=== PATIENT | male | born 1990 | race Caucasian/White ===

== ENCOUNTER 2020-06-12 16:12 | Emergency (ER) | payer BC, OTHER ==
[2020-06-12 16:24] VITALS: RESP 18; TEMP 98
--- NOTE | 2020-06-12 16:28 | ED ---
General Adult HPI - General Source: patient Mode of arrival: ambulatory Limitations: no limitations <Chet Torres - Last Filed: 06/12/20 18:03> <Asher Louie - Last Filed: 06/12/20 21:58> - General Chief complaint: Recheck/Abnormal Lab/Rx Stated complaint: Rib Pain Time Seen by Provider: 06/12/20 16:25 - History of Present Illness Initial comments: 29-year-old male presenting to the emergency department with multiple chief complaints. Patient reports 3 days ago he was wrestling with one of his friends and injured his left lateral ribs. Patient reports no the pain is exacerbated with any left and right rotation and occasional bending. Does not report any pain with deep breaths. States he did have broken ribs previously on the left side and is concerned that he might have "rebroke". Patient is also complaining of possible seizure-like activities as benign over the past several months. Patient reports he had a witnessed seizure-like activity with shaking and apparent postictal activity where the patient was disoriented for approximately half hour. Patient reports he has been diagnosed with fibromyalgia as well by an unknown physician several years ago. He does not have a primary care physician. Denies chest pain shortness of breath headaches blurry vision. No history of epilepsy. (Chet Torres) - Related Data Home Medications Medication Instructions Recorded Confirmed No Known Home Medications 06/12/20 06/12/20 Allergies Allergy/AdvReac Type Severity Reaction Status Date / Time No Known Allergies Allergy Verified 06/12/20 17:02 Review of Systems ROS Other: All systems not noted in ROS Statement are negative. <Chet Torres - Last Filed: 06/12/20 18:03> ROS Other: All systems not noted in ROS Statement are negative. <Asher Louie - Last Filed: 06/12/20 21:58> ROS Statement: Those systems with pertinent positive or pertinent negative responses have been documented in the HPI. Past Medical History Past Medical History: No Reported History History of Any Multi-Drug Resistant Organisms: None Reported Past Surgical History: No Surgical Hx Reported Past Psychological History: No Psychological Hx Reported Past Alcohol Use History: None Reported Past Drug Use History: None Reported <Chet Torres - Last Filed: 06/12/20 18:03> General Exam Limitations: no limitations General appearance: alert, in no apparent distress Head exam: Present: atraumatic, normocephalic, normal inspection Eye exam: Present: normal appearance, PERRL, EOMI Pupils: Present: normal accommodation ENT exam: Present: normal exam, normal oropharynx, mucous membranes moist, TM's normal bilaterally, normal external ear exam Neck exam: Present: normal inspection, full ROM. Absent: tenderness Respiratory exam: Present: normal lung sounds bilaterally. Absent: respiratory distress, wheezes, rales, rhonchi, stridor GI/Abdominal exam: Present: soft, tenderness (Mild tenderness on the left chest wall. No region of ecchymosis.). Absent: distended Extremities exam: Present: normal inspection, full ROM, normal capillary refill. Absent: tenderness, pedal edema, joint swelling Back exam: Present: normal inspection, full ROM. Absent: tenderness, CVA tenderness (R), CVA tenderness (L) Neurological exam: Present: alert, oriented X3 Psychiatric exam: Present: normal affect, normal mood Skin exam: Present: warm, dry, intact, normal color <Chet Torres - Last Filed: 06/12/20 18:03> Course Vital Signs 06/12/20 06/12/20 16:21 18:05 Temperature 98.0 F Pulse Rate 94 70 Respiratory 18 18 Rate Blood Pressure 163/86 129/80 O2 Sat by Pulse 100 100 Oximetry Medical Decision Making - Lab Data Result diagrams: 06/12/20 16:58 06/12/20 16:58 <Chet Torres - Last Filed: 06/12/20 18:03> - Lab Data Result diagrams: 06/12/20 16:58 06/12/20 16:58 <Asher Louie - Last Filed: 06/12/20 21:58> - Medical Decision Making 29-year-old male presenting to the emergency department with multiple chief complaints. On physical examination does have mild left-sided, localized chest wall tenderness. The rest of physical exam is unremarkable. X-ray of the ribs and chest is unremarkable. EKG showed a right bundle branch block. CBC CMP, magnesium and phosphorus within normal limits. Patient supposedly had a new onset seizure over the last several months and has not been evaluated. Patient was given contact information regarding local primary care physicians. I highly recommended to the patient that he should obtain a primary care physician. Return parameters were thoroughly discussed the patient's abstaining agreeable. Case discussed with physician. (Chet Torres) - Lab Data Lab Results 06/12/20 06/12/20 06/12/20 Range/Units 16:58 16:58 16:58 WBC 5.5 (3.8-10.6) k/uL RBC 4.86 (4.30-5.90) m/uL Hgb 15.1 (13.0-17.5) gm/dL Hct 45.2 (39.0-53.0) % MCV 93.0 (80.0-100.0) fL MCH 31.1 (25.0-35.0) pg MCHC 33.4 (31.0-37.0) g/dL RDW 13.0 (11.5-15.5) % Plt Count 235 (150-450) k/uL MPV 7.1 Neutrophils % 59 % Lymphocytes % 30 % Monocytes % 5 % Eosinophils % 3 % Basophils % 1 % Neutrophils # 3.2 (1.3-7.7) k/uL Lymphocytes # 1.7 (1.0-4.8) k/uL Monocytes # 0.3 (0-1.0) k/uL Eosinophils # 0.2 (0-0.7) k/uL Basophils # 0.1 (0-0.2) k/uL Sodium 141 (137-145) mmol/L Potassium 4.1 (3.5-5.1) mmol/L Chloride 102 (98-107) mmol/L Carbon Dioxide 33 H (22-30) mmol/L Anion Gap 6 mmol/L BUN 11 (9-20) mg/dL Creatinine 0.63 L (0.66-1.25) mg/dL Est GFR (CKD-EPI)AfAm >90 (>60 ml/min/1.73 sqM) Est GFR (CKD-EPI)NonAf >90 (>60 ml/min/1.73 sqM) Glucose 103 H (74-99) mg/dL Calcium 9.5 (8.4-10.2) mg/dL Phosphorus 3.9 (2.5-4.5) mg/dL Magnesium 1.9 (1.6-2.3) mg/dL Total Bilirubin 0.5 (0.2-1.3) mg/dL AST 25 (17-59) U/L ALT 28 (4-49) U/L Alkaline Phosphatase 72 (38-126) U/L Total Protein 7.9 (6.3-8.2) g/dL Albumin 4.6 (3.5-5.0) g/dL - EKG Data EKG Comments: Sinus rhythm with a right bundle branch block. Ventricular rate 82, CO 140, QRS 156, QTC 457. (Chet Torres) Disposition Is patient prescribed a controlled substance at d/c from ED?: No Time of Disposition: 17:57 <Chet Torres - Last Filed: 06/12/20 18:03> <Asher Louie - Last Filed: 06/12/20 21:58> Clinical Impression: Rib pain on left side, New onset seizure Disposition: HOME SELF-CARE Condition: Stable Instructions (If sedation given, give patient instructions): Rib Contusion (ED) Additional Instructions: Alternate between Tylenol and Motrin for pain control. Obtain a primary care physician. Return to emergency department if symptoms worsen. Referrals: None,Stated [Primary Care Provider] - 1-2 days Lb Alaniz MD [REFERRING] - 1-2 days Xochilt Villar MD [STAFF PHYSICIAN] - 1-2 days Uriel Paul DO [Doctor of Osteopathic Medicine] - 1-2 days
--- NOTE | 2020-06-12 17:06 | XR ---
EXAMINATION TYPE: PA chest and left rib series DATE OF EXAM: 06/12/2020 TECHNIQUE: 5 views Comparison: 06/24/2014 Clinical History: 29-year-old male with pain after fall injury Findings: The cardiomediastinal silhouette, aorta, and pulmonary vasculature are within normal limits. Lungs and pleural spaces are clear. No displaced left rib fracture. Impression: No acute cardiopulmonary process. No displaced left rib fracture.
[2020-06-12 17:15] LABS: Basophils # (A) 0.1 k/uL (0-0.2); Basophils % (A) 1 %; Eosinophils # (A) 0.2 k/uL (0-0.7); Eosinophils % (A) 3 %; HCT 45.2 % (39.0-53.0); HGB 15.1 gm/dL (13.0-17.5); Lymphocytes # (A) 1.7 k/uL (1.0-4.8); Lymphocytes % (A) 30 %; MCH 31.1 pg (25.0-35.0); MCHC 33.4 g/dL (31.0-37.0); Mean Platelet Volume 7.1; Monocytes # (A) 0.3 k/uL (0-1.0); Monocytes % (A) 5 %; Neutrophils # (A) 3.2 k/uL (1.3-7.7); Neutrophils % (A) 59 %; Platelet Count 235 k/uL (150-450); RBC 4.86 m/uL (4.30-5.90); WBC 5.5 k/uL (3.8-10.6)
[2020-06-12 17:24] LABS: ALT 28 U/L (4-49); AST 25 U/L (17-59); African American GFR (CKD) >90 (>60 ml/min/1.73 sqM); Albumin 4.6 g/dL (3.5-5.0); Alkaline Phosphatase 72 U/L (38-126); Anion Gap 6 mmol/L; Blood Urea Nitrogen 11 mg/dL (9-20); Calcium 9.5 mg/dL (8.4-10.2); Carbon Dioxide 33 mmol/L (22-30); Chloride 102 mmol/L (98-107); Glucose 103 mg/dL (74-99); Magnesium 1.9 mg/dL (1.6-2.3); Non-African American GFR(CKD) >90 (>60 ml/min/1.73 sqM); Phosphorus 3.9 mg/dL (2.5-4.5); Potassium 4.1 mmol/L (3.5-5.1); Sodium 141 mmol/L (137-145); Total Bilirubin 0.5 mg/dL (0.2-1.3); Total Protein 7.9 g/dL (6.3-8.2)
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
[2020-06-12 18:09] VITALS: BP 129/80; PULSE 70
== END 2020-06-12 18:04 | disposition home or self-care (01) ==
LOC: EC 16:12
DX: S29.9XXA Unspecified injury of thorax, initial encounter (principal); R56.9 Unspecified convulsions; I45.10 Unspecified right bundle-branch block; X58.XXXA Exposure to other specified factors, initial encounter; Y93.72 Activity, wrestling
CPT/HCPCS: 36415; 70450; 72125; 80053; 83735; 84100; 85025; 93005; 99284

== ENCOUNTER 2022-10-15 12:54 | Emergency (ER) | payer OTHER ==
[2022-10-15 13:02] VITALS: RESP 16; TEMP 97.9
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
--- NOTE | 2022-10-15 14:01 | XR ---
EXAMINATION TYPE: XR ankle complete LT DATE OF EXAM: 10/15/2022 COMPARISON: None HISTORY: Pain TECHNIQUE: 3 view left ankle FINDINGS: No acute fractures are evident. Old fracture of the distal tibia appears to be present. Ank le mortise is intact. Soft tissues are normal. Follow up exams can be performed 710 days from acute trauma for continued pain. IMPRESSION: 1. No acute osseous abnormality left ankle
[2022-10-15 14:28] VITALS: BP 131/76; PULSE 94
== END 2022-10-15 14:31 | disposition home or self-care (01) ==
LOC: EC 12:54
DX: S93.402A Sprain of unspecified ligament of left ankle, initial encounter (principal); F17.290 Nicotine dependence, other tobacco product, uncomplicated; X58.XXXA Exposure to other specified factors, initial encounter
CPT/HCPCS: 99283

== ENCOUNTER 2023-11-09 14:07 | Emergency (ER) | payer BC, OTHER ==
[2023-11-09 14:12] VITALS: TEMP 98
--- NOTE | 2023-11-09 14:33 | ED ---
General Adult HPI - General Chief complaint: Chest Pain Stated complaint: Dizziness Time Seen by Provider: 11/09/23 14:15 Source: patient Mode of arrival: ambulatory Limitations: no limitations - History of Present Illness Initial comments: This patient is a 33-year-old man who presents to have reevaluation for generalized fatigue, lightheadedness and dizziness, that been going on since . The patient states that the symptoms led him to be seen at [facility] on Friday, where he states that they did some tests and gave him a diagnosis of "heart block." He is directed to have follow-up with cardiology and he states he has appointment coming up in a few weeks. The patient also was given prescription of meclizine for his symptoms. He states that the symptoms really had started when he went home from work. He was feeling very fatigued. He states that he went to sleep and slept 8 hours which is unusual for him. When he woke up he was feeling dizzy and lightheaded so he went to the other hospital. Today the symptoms recurred so he presents to have evaluation here. Patient also states that as he was pulling into the hospital he noticed that he had some left anterior chest pain which she described as a stabbing pain. He states that it has gone down from its initial onset though has not completely resolved. No associated symptoms, no dyspnea, diaphoresis, nausea or vomiting. No syncope or palpitations. -: days(s) Location: chest Radiation: non-radiation Quality: stabbing Consistency: constant Improves with: none Worsens with: none Associated Symptoms: other (Fatigue and dizziness) Treatments Prior to Arrival: none - Related Data Home Medications Medication Instructions Recorded Confirmed No Known Home Medications 06/12/20 06/12/20 Allergies Allergy/AdvReac Type Severity Reaction Status Date / Time No Known Allergies Allergy Verified 11/09/23 14:13 Review of Systems ROS Statement: Those systems with pertinent positive or pertinent negative responses have been documented in the HPI. ROS Other: All systems not noted in ROS Statement are negative. Constitutional: Denies: fever, chills, weakness Eyes: Denies: vision change Respiratory: Denies: cough, dyspnea, wheezes Cardiovascular: Reports: chest pain. Denies: palpitations, dyspnea on exertion, orthopnea, edema, syncope Endocrine: Reports: fatigue Gastrointestinal: Denies: abdominal pain, vomiting, diarrhea Genitourinary: Denies: dysuria Musculoskeletal: Denies: back pain Skin: Denies: rash Neurological: Denies: headache, weakness, numbness Past Medical History Past Medical History: No Reported History Additional Past Medical History / Comment(s): heart block dx on 11-07-2023 History of Any Multi-Drug Resistant Organisms: None Reported Past Surgical History: No Surgical Hx Reported Past Psychological History: No Psychological Hx Reported Smoking Status: Vaper Past Alcohol Use History: None Reported Past Drug Use History: None Reported General Exam Limitations: no limitations General appearance: alert, in no apparent distress Head exam: Present: atraumatic, normocephalic Eye exam: Present: normal appearance. Absent: scleral icterus, conjunctival injection ENT exam: Present: normal oropharynx Neck exam: Present: normal inspection Respiratory exam: Present: normal lung sounds bilaterally. Absent: respiratory distress, wheezes, rales, rhonchi, stridor, accessory muscle use Cardiovascular Exam: Present: regular rate, normal rhythm, normal heart sounds. Absent: systolic murmur, diastolic murmur, rubs, gallop GI/Abdominal exam: Present: soft. Absent: distended, tenderness, guarding, rebound, rigid, mass Extremities exam: Present: normal inspection, normal capillary refill. Absent: pedal edema, calf tenderness Back exam: Present: normal inspection. Absent: CVA tenderness (R), CVA tenderness (L) Neurological exam: Present: alert Skin exam: Present: warm, dry, intact, normal color. Absent: rash Course Vital Signs 11/09/23 11/09/23 11/09/23 14:09 14:36 16:46 Temperature 98.0 F Pulse Rate 82 70 Pulse Rate [ 89 Environmental Quality Analyst ] Respiratory 20 18 Rate Blood Pressure 147/93 144/94 O2 Sat by Pulse 98 97 Oximetry EKG Findings - EKG Results: EKG: interpreted by ERMD, sinus rhythm (75 bpm), normal axis - Blocks, [place], Hypertrophy, ST Abn: AV and intraventricular conduction: right bundle branch block (fixed/intermittent, complete/incomplete), left posterior fascicular block Medical Decision Making - Medical Decision Making The patient had chest x-ray that I interpreted as negative for acute infiltrate, pneumothorax, congestive heart failure. Was pt. sent in by a medical professional or institution (Dr., PA, SALES MANAGEMENT INTERN, urgent care, hospital, or prison...) When possible be specific @ -[No] Did you speak to anyone other than the patient for history (EMS, parent, family, police, friend...)? What history was obtained from this source @ -[No] Did you review nursing and triage notes (agree or disagree)? Why? @ -[I reviewed and agree with nursing and triage notes] Were old charts reviewed (outside hosp., previous admission, EMS record, old EKG, old radiological studies, urgent care reports/EKG's, prison records)? Report findings @ -[No old charts were reviewed] Differential Diagnosis (chest pain, altered mental status, abdominal pain women, abdominal pain men, vaginal bleeding, weakness, fever, dyspnea, syncope, headache, dizziness, GI bleed, back pain, seizure, CVA, palpatations, mental health, musculoskeletal)? @ -[Differential Chest Pain: Stable Angina, Unstable Angina, STEMI, NSTEMI Aortic Dissection, Pneumothorax, Musculoskeletal, Esophageal Spasm GERD, Cholecystitis, Pancreatitis, Zoster, this is not meant to be an all-inclusive list. EKG interpreted by me (3pts min.). @ -[I interpreted as above] X-rays interpreted by me (1pt min.). @ -[I interpreted as above CT interpreted by me (1pt min.). @ -[None done] U/S interpreted by me (1pt. min.). @ -[None done] What testing was considered but not performed or refused? (CT, X-rays, U/S, labs)? Why? @ -[None] What meds were considered but not given or refused? Why? @ -[None] Did you discuss the management of the patient with other professionals (professionals i.e. , PA, SALES MANAGEMENT INTERN, lab, RT, psych nurse, high school social studies teacher, records tech, teacher, chief knowledge officer, case aide)? Give summary @ -[No] Was smoking cessation discussed for >3mins.? @ -[No] Was critical care preformed (if so, how long)? @ -[No] Were there social determinants of health that impacted care today? How? (Homelessness, low income, unemployed, alcoholism, drug addiction, transportation, low edu. Level, literacy, decrease access to med. care, long term, rehab)? @ -[No] Was there de-escalation of care discussed even if they declined (Discuss DNR or withdrawal of care, Hospice)? DNR status @ -[No] What co-morbidities impacted this encounter? (DM, HTN, Smoking, COPD, CAD, Cancer, CVA, ARF, Chemo, Hep., AIDS, mental health diagnosis, sleep apnea, morbid obesity)? @ -[None] Was patient admitted / discharged? Hospital course, mention meds given and route, prescriptions, significant lab abnormalities, going to OR and other per tinent info. @ -[Patient is a 33-year-old man here to have evaluation of chest pain. His exam and workup are unremarkable. Based on heart score patient stable to continue workup as outpatient, return parameters were discussed. Undiagnosed new problem with uncertain prognosis? @ -[No] Drug Therapy requiring intensive monitoring for toxicity (Heparin, Nitro, Insulin, Cardizem)? @ -[No] Were any procedures done? @ -[No] Diagnosis/symptom? @ -[Acute chest pain Right bundle branch block. Acute, or Chronic, or Acute on Chronic? @ -[Acute Uncomplicated (without systemic symptoms) or Complicated (systemic symptoms)? @ -[Uncomplicated Side effects of treatment? @ -[No] Exacerbation, Progression, or Severe Exacerbation? @ -[No] Poses a threat to life or bodily function? How? (Chest pain, [place], [place], pneumonia, PE, COPD, DKA, ARF, appy, cholecystitis, CVA, Diverticulitis, Homicidal, Suicid al, threat to staff... and all critical care pts) @ -[No] - Lab Data Result diagrams: 11/09/23 14:42 11/09/23 14:42 Lab Results 11/09/23 11/09/23 11/09/23 Range/Units 14:42 14:42 14:42 WBC 4.0 (3.8-10.6) k/uL RBC 4.77 (4.30-5.90) m/uL Hgb 15.5 (13.0-17.5) gm/dL Hct 45.0 (39.0-53.0) % MCV 94.2 (80.0-100.0) fL MCH 32.5 (25.0-35.0) pg MCHC 34.5 (31.0-37.0) g/dL RDW 13.4 (11.5-15.5) % Plt Count 191 (150-450) k/uL MPV 7.1 Neutrophils % 63 % Lymphocytes % 24 % Monocytes % 8 % Eosinophils % 2 % Basophils % 1 % Neutrophils # 2.5 (1.3-7.7) k/uL Lymphocytes # 1.0 (1.0-4.8) k/uL Monocytes # 0.3 (0-1.0) k/uL Eosinophils # 0.1 (0-0.7) k/uL Basophils # 0.0 (0-0.2) k/uL PT 10.7 (10.0-12.5) sec INR 1.0 (<1.2) APTT 27.1 (22.0-30.0) sec Sodium 141 (137-145) mmol/L Potassium 3.9 (3.5-5.1) mmol/L Chloride 108 H (98-107) mmol/L Carbon Dioxide 30 (22-30) mmol/L Anion Gap 3 mmol/L BUN 14 (9-20) mg/dL Creatinine 0.66 (0.66-1.25) mg/dL Est GFR (CKD-EPI)AfAm >90 (>60 ml/min/1.73 sqM) Est GFR (CKD-EPI)NonAf >90 (>60 ml/min/1.73 sqM) Glucose 94 (74-99) mg/dL Calcium 8.8 (8.4-10.2) mg/dL Magnesium 2.1 (1.6-2.3) mg/dL Total Bilirubin 1.0 (0.2-1.3) mg/dL AST 21 (17-59) U/L ALT 17 (4-49) U/L Alkaline Phosphatase 69 (38-126) U/L Troponin I (0.000-0.034) ng/mL Total Protein 6.8 (6.3-8.2) g/dL Albumin 4.1 (3.5-5.0) g/dL 11/09/23 Range/Units 14:42 WBC (3.8-10.6) k/uL RBC (4.30-5.90) m/uL Hgb (13.0-17.5) gm/dL Hct (39.0-53.0) % MCV (80.0-100.0) fL MCH (25.0-35.0) pg MCHC (31.0-37.0) g/dL RDW (11.5-15.5) % Plt Count (150-450) k/uL MPV Neutrophils % % Lymphocytes % % Monocytes % % Eosinophils % % Basophils % % Neutrophils # (1.3-7.7) k/uL Lymphocytes # (1.0-4.8) k/uL Monocytes # (0-1.0) k/uL Eosinophils # (0-0.7) k/uL Basophils # (0-0.2) k/uL PT (10.0-12.5) sec INR (<1.2) APTT (22.0-30.0) sec Sodium (137-145) mmol/L Potassium (3.5-5.1) mmol/L Chloride (98-107) mmol/L Carbon Dioxide (22-30) mmol/L Anion Gap mmol/L BUN (9-20) mg/dL Creatinine (0.66-1.25) mg/dL Est GFR (CKD-EPI)AfAm (>60 ml/min/1.73 sqM) Est GFR (CKD-EPI)NonAf (>60 ml/min/1.73 sqM) Glucose (74-99) mg/dL Calcium (8.4-10.2) mg/dL Magnesium (1.6-2.3) mg/dL Total Bilirubin (0.2-1.3) mg/dL AST (17-59) U/L ALT (4-49) U/L Alkaline Phosphatase (38-126) U/L Troponin I <0.012 (0.000-0.034) ng/mL Total Protein (6.3-8.2) g/dL Albumin (3.5-5.0) g/dL Disposition Clinical Impression: Right bundle branch block Disposition: HOME SELF-CARE Condition: Good Instructions (If sedation given, give patient instructions): Heart Block (ED) Is patient prescribed a controlled substance at d/c from ED?: No Referrals: None,Stated [Primary Care Provider] - 1-2 days Wagner Noble MD [STAFF PHYSICIAN] - 1-2 days
[2023-11-09 14:50] LABS: Basophils % (A) 1 %; Eosinophils # (A) 0.1 k/uL (0-0.7); Eosinophils % (A) 2 %; HGB 15.5 gm/dL (13.0-17.5); Lymphocytes % (A) 24 %; MCH 32.5 pg (25.0-35.0); MCHC 34.5 g/dL (31.0-37.0); MCV 94.2 fL (80.0-100.0); Mean Platelet Volume 7.1; Monocytes # (A) 0.3 k/uL (0-1.0); Monocytes % (A) 8 %; Neutrophils # (A) 2.5 k/uL (1.3-7.7); Neutrophils % (A) 63 %; Platelet Count 191 k/uL (150-450); RBC 4.77 m/uL (4.30-5.90); RDW 13.4 % (11.5-15.5)
--- NOTE | 2023-11-09 14:55 | XR ---
EXAMINATION TYPE: XR chest 2V DATE OF EXAM: 11/09/2023 2:49 PM CLINICAL INDICATION:Male, 33 years old with history of Chest Pain; [facility] COMPARISON: 06/24/2014 TECHNIQUE: XR chest 2V. Frontal and lateral views of the chest.. FINDINGS: Lines/Tubes/Devices: No indwelling lines are seen. Monitor leads. Heart/mediastinum: Heart size is normal. Mediastinum appears normal. Pulmonary vascularity: Not increased, Lungs/Pleura: There is no evidence of pleural effusion, focal consolidation, or pneumothorax. Musculoskeletal: No acute osseous abnormality demonstrated in the limits of the exam. Other findings: None significant IMPRESSION: No acute cardiopulmonary abnormality.
[2023-11-09 15:01] LABS: Partial Thromboplastin Time 27.1 sec (22.0-30.0); Prothrombin Time 10.7 sec (10.0-12.5)
[2023-11-09 15:15] LABS: ALT 17 U/L (4-49); AST 21 U/L (17-59); African American GFR (CKD) >90 (>60 ml/min/1.73 sqM); Albumin 4.1 g/dL (3.5-5.0); Alkaline Phosphatase 69 U/L (38-126); Anion Gap 3 mmol/L; Blood Urea Nitrogen 14 mg/dL (9-20); Calcium 8.8 mg/dL (8.4-10.2); Carbon Dioxide 30 mmol/L (22-30); Chloride 108 mmol/L (98-107); Glucose 94 mg/dL (74-99); Magnesium 2.1 mg/dL (1.6-2.3); Non-African American GFR(CKD) >90 (>60 ml/min/1.73 sqM); Potassium 3.9 mmol/L (3.5-5.1); Sodium 141 mmol/L (137-145); Total Protein 6.8 g/dL (6.3-8.2)
[2023-11-09 16:48] VITALS: BP 144/94; PULSE 70; RESP 18
== END 2023-11-09 16:46 | disposition home or self-care (01) ==
LOC: EC 14:07
DX: I45.10 Unspecified right bundle-branch block (principal); F17.290 Nicotine dependence, other tobacco product, uncomplicated
CPT/HCPCS: 36415; 71046; 80053; 83735; 84484; 85025; 85610; 85730; 93005; 99285